=== PATIENT | female | born 1950 | race American Indian/Alaskan Native ===

== ENCOUNTER 2018-09-10 11:00 | Emergency (ER) | payer MEDICARE, OTHER ==
[2018-09-10 11:20] VITALS: BMI 34.9
[2018-09-10 11:23] VITALS: RESP 18; TEMP 98
[2018-09-10] MEDS ORDERED: Oxycodone/Acetaminophen 5/325 mg Tab PO STA (11:39)
--- NOTE | 2018-09-10 11:39 | ED PDOC ---
Arrival/HPI - General Chief Complaint: Lower Extremity Problem/Injury Time Seen by Provider: 09/10/18 11:33 Historian: Patient - History of Present Illness Narrative History of Present Illness (Text): 09/10/18 11:33 68 y/o female, pmh including htn, nkda, c/o rt. knee pain on and off x 1 week with no fall or trauma. Aching pain, associated with morning stiffness, no fall or trauma, no palpitation, no chest pain or shortness of breath, no night sweat, no rash, no other medical or psychological complaints. Past Medical History - Provider Review Nursing Documentation Reviewed: Yes - Cardiac Hx Hypertension: Yes - Pulmonary Hx Respiratory Disorders: No - Neurological Hx Neurological Disorder: No - HEENT Hx HEENT Disorder: No - Renal Hx Renal Disorder: No - Endocrine/Metabolic Hx Endocrine Disorders: No - Hematological/Oncological Hx Blood Disorders: No - Integumentary Hx Dermatological Disorder: No - Psychiatric Hx Substance Use: No - Surgical History Other/Comment: Ectopic 30 years - Anesthesia Hx Anesthesia: Yes Hx Anesthesia Reactions: No Family/Social History - Physician Review Nursing Documentation Reviewed: Yes Family/Social History: Unknown Family HX Smoking Status: Never Smoked Hx Alcohol Use: No Hx Substance Use: No Allergies/Home Meds Allergies/Adverse Reactions: Allergies No Known Allergies Allergy (Verified 09/10/18 11:23) Home Medications: Home Meds Medication Instructions Recorded Confirmed amLODIPine [Norvasc] 5 mg PO DAILY 09/10/18 09/10/18 Review of Systems - Review of Systems Constitutional: absent: Fatigue, Fevers Eyes: absent: Vision Changes ENT: absent: Hearing Changes Respiratory: absent: SOB, Cough Cardiovascular: absent: Chest Pain Gastrointestinal: absent: Abdominal Pain, Diarrhea, Nausea, Vomiting Musculoskeletal: Arthralgias, Joint Swelling. absent: Back Pain, Neck Pain, Myalgias Skin: absent: Rash, Pruritis Neurological: absent: Headache, Speech Changes Psychiatric: absent: Anxiety, Depression Physical Exam Vital Signs Reviewed: Yes Vital Signs Temp Pulse Resp BP Pulse Ox 09/10/18 11:20 98 F 85 18 120/80 95 Temperature: Afebrile Blood Pressure: Normal Pulse: Regular Respiratory Rate: Normal Appearance: Positive for: Well-Appearing, Non-Toxic, Comfortable Pain Distress: Moderate Mental Status: Positive for: Alert and Oriented X 3 - Systems Exam Head: Present: Atraumatic, Normocephalic Pupils: Present: PERRL Extroacular Muscles: Present: EOMI Conjunctiva: Present: Normal Mouth: Present: Moist Mucous Membranes Neck: Present: Normal Range of Motion Respiratory/Chest: Present: Clear to Auscultation, Good Air Exchange. No: Respiratory Distress, Accessory Muscle Use Cardiovascular: Present: Regular Rate and Rhythm, Normal S1, S2. No: Murmurs Abdomen: No: Tenderness, Distention, Peritoneal Signs Back: Present: Normal Inspection Upper Extremity: Present: Normal Inspection. No: Cyanosis, Edema Lower Extremity: Present: Normal Inspection, NORMAL PULSES, Normal ROM, Neurovascularly Intact, Other (RLE: +ttp on the anterior and medial knee with mild swelling, no cellulitis or ulcers, FROM without limitation, sensation intact, motor 5/5, +DPPT Pulses, capillary refill< 2 seconds, neurovascular intact. ). No: Edema, Deformity Neurological: Present: GCS=15, CN II-XII Intact, Speech Normal, Motor Func Grossly Intact, Memory Normal Skin: Present: Warm, Dry, Normal Color. No: Rashes Psychiatric: Present: Alert, Oriented x 3, Normal Insight, Normal Concentration Medical Decision Making ED Course and Treatment: 09/10/18 11:46 -Uric acid -Rt. knee xray -RLE Venuous doppler -Observe and reassess 09/10/18 14:22 -Uric acid within normal limit -Rt. knee xray No acute findings related to/ accounting for the clinical presentation.Additional benign and/or incidental findings described above. -RLE Venuous doppler: as per preliminary report, no acute DVT -Pain resolved, walking around, july wrap applied with neurovascular intact. -Discharge home with july wrap, cane, tylenol, follow up with your own pmd and orthopedic within 2 days, return to the ER for any new or worsening signs or symptoms. - RAD Interpretation Radiology Orders: -Rt. knee xray Date of service: 09/10/2018 PROCEDURE: Right Knee Radiographs. HISTORY: rt. knee pain for weeks COMPARISON: None. FINDINGS: BONES: Normal. No fracture. JOINTS: Medial compartment degenerative change. JOINT EFFUSION: None. OTHER FINDINGS: None. IMPRESSION: No acute findings related to/ accounting for the clinical presentation.Additional benign and/or incidental findings described above. Concordant results with the preliminary interpretation rendered by the emergency department physician\PA at the conclusion of the procedure. -RLE Venuous doppler: as per preliminary report, no acute DVT [employer] Administrator: Radiologist - PA / PROPERTY MANAGEMENT INTERN / Resident Statement / has reviewed & agrees with the documentation as recorded. Disposition/Present on Arrival - Present on Arrival Any Indicators Present on Arrival: No History of DVT/PE: No History of Uncontrolled Diabetes: No Urinary Catheter: No History of Decub. Ulcer: No History Surgical Site Infection Following: None - Disposition Have Diagnosis and Disposition been Completed?: Yes Diagnosis: Osteoarthritis Disposition: HOME/ ROUTINE Disposition Time: 14:23 Patient Plan: Discharge Condition: IMPROVED Additional Instructions: -Discharge home with july wrap, cane, tylenol, follow up with your own pmd and orthopedic within 2 days, return to the ER for any new or worsening signs or symptoms. Prescriptions: Acetaminophen 2 tab PO QID PRN #30 tab PRN Reason: Other Referrals: Rickie Mathis DO [Staff Provider] - Follow up with primary [facility] [place] [Outside] - Follow up with primary Forms: [employer] (Finnish), WORK NOTE
[2018-09-10 13:50] VITALS: PULSE 70; O2SAT 96
--- NOTE | 2018-09-10 13:57 | RAD ---
Date of service: 09/10/2018 PROCEDURE: Right Knee Radiographs. HISTORY: rt. knee pain for weeks COMPARISON: None. FINDINGS: BONES: Normal. No fracture. JOINTS: Medial compartment degenerative change. JOINT EFFUSION: None. OTHER FINDINGS: None. IMPRESSION: No acute findings related to/ accounting for the clinical presentation.Additional benign and/or incidental findings described above. Concordant results with the preliminary interpretation rendered by the emergency department physician procedure.
[2018-09-10 14:27] VITALS: BP 116/84
--- NOTE | 2018-09-10 21:49 | US ---
PROCEDURE: Right lower extremity venous US HISTORY: Leg pain and swelling. Evaluate for DVT. PHYSICIAN(S): Tanmay Brown M.D. TECHNIQUE: Duplex sonography and color-flow Doppler with graded compression were used to evaluate the deep venous system of the right lower extremity. FINDINGS: The visualized deep venous system of the right lower extremity is sonographically normal and compressible. Normal waveforms and augmentation are seen. There is no sonographic evidence for deep venous thrombosis in the visualized segments of the right lower extremity. IMPRESSION: 1. No sonographic evidence for deep venous thrombosis in the visualized segments of the right lower extremity.
== END 2018-09-10 14:31 | disposition home or self-care (01) ==
LOC: ED 11:00
DX: M17.11 Unilateral primary osteoarthritis, right knee (principal); I10 Essential (primary) hypertension